=== PATIENT | male | born 1965 | race Caucasian/White ===

== ENCOUNTER 2023-06-15 06:23 | Day surgery (SDC) | payer OTHER ==
[2023-06-14 15:49] LABS: Absolute Lymphocytes (CBC) 2.2 K/uL (0.7-4.9); Hematocrit 43.2 % (39.6-49.0); Lymphocytes % 22.5 % (15.3-44.8); MCV 84.7 fL (80-100); MPV 6.9 fL (7.6-11.3); Platelets 281 thou/uL (152-406)
[2023-06-14 16:04] LABS: Potassium 3.8 mEq/L (3.5-5.1)
--- NOTE | 2023-06-14 16:32 | RAD REPORT ---
EXAM DESCRIPTION: Vale Mcpherson (2 Views)06/14/2023 3:50 pm CLINICAL HISTORY: Cough COMPARISON: 2012 FINDINGS: The lungs appear clear of acute infiltrate. The heart is normal size IMPRESSION: No acute abnormalities displayed
[2023-06-15] MEDS ORDERED: propofoL 200 MG/20 ML VIAL IV ONE (06:42)
[2023-06-15] MEDS ORDERED: MIDAZOLAM HCL 2 MG/2 ML INJ ONE (06:42)
[2023-06-15] MEDS ORDERED: LIDOCAINE 2% MPF 5 ML VIAL ONE (06:42)
[2023-06-15] MEDS ORDERED: CEFOXITIN SODIUM 1 GM/VIAL ONE (06:46)
[2023-06-15] MEDS ORDERED: Ringers Lactate 1,000 ML IV ONE (06:47)
[2023-06-15] MEDS ORDERED: BUPIVACAINE 0.5% PF 10 ML VIAL ONE (07:20)
[2023-06-15] MEDS ORDERED: ONDANSETRON 4 MG/2 ML VIAL ONE (07:57)
[2023-06-15] MEDS ORDERED: KETOROLAC 30 MG/ML INJ ONE (07:57)
[2023-06-15] MEDS ORDERED: KETAMINE HCL IN 0.9 % NACL 50 MG/5 ML SYRINGE IV ONE (07:57)
[2023-06-15] MEDS ORDERED: dexAMETHasone 10 MG/ML VIAL ONE (07:57)
[2023-06-15] MEDS ORDERED: HYDROCODONE/APAP 7.5/325 MG TAB PO PRN (08:46)
--- NOTE | 2023-06-15 08:50 | P.OP ---
Date of Service: 06/15/23 Preop diagnosis: Thrombosed hemorrhoid Postop diagnosis: Same, thrombosed hemorrhoid x 2 Procedure performed: EUA, rigid proctoscopy, hemorrhoidectomy x 2 Surgeon: Santiago Figueroa MD Trackwalker: None Estimated blood loss: Minimal Specimen: Right lateral thrombosed hemorrhoid, left lateral thrombosed hemorrhoid Findings: As above Anesthesia: General Complications: None Drains: None Fluids and blood products: Nonapplicable Disposition: Recovery room Operative note: Patient brought to the OR and placed in supine position. Ge neral anesthesia begun. Patient placed in lithotomy position. Patient prepped and draped in usual sterile fashion. Exam under anesthesia revealed a large thrombosed hemorrhoid on the right side and a small thrombosed hemorrhoid on the left side. Proctoscopy confirmed those findings and no other evidence of disease was identified. Harmonic scalpel used to excise both hemorrhoids. Both hemorrhoids labeled and sent to pathology. Cautery used to control minimal oozing. Marcaine 0.5% infiltrated locally for postop pain control. Rectal pack consisting of Gelfoam Surgicel and Vaseline gauze placed in the anal canal. Sterile dressing applied and patient awakened. Patient taken to recovery room in good general condition. CC: Dr. Solano's office
[2023-06-15 09:24] VITALS: BP 129/84; TEMP 98
[2023-06-15 09:25] VITALS: O2SAT 100
--- NOTE | 2023-06-15 13:23 | EKG ---
Test Date: 2023-06-14 Test Time: 16:33:06 Compressor Station Chief Engineer: GRACIE MEASUREMENT RESULTS: Intervals: Rate: 58 [place]: 132 QRSD: 102 QT: 408 QTc: 400 [place]: P: 67 [place]: 132 QRS: 88 T: 42 INTERPRETIVE STATEMENTS: Sinus bradycardia Otherwise normal ECG Compared to ECG 08/01/2011 13:37:09 Sinus rhythm no longer present T-wave abnormality no longer present Electronically Signed On 06-15-23 13:21:43 FAMILY MEDICINE RESIDENT by Joseph Aranda
[2023-06-15] MEDS ORDERED: FENTANYL CITR 100 MCG/2 ML ONE (13:49)
== END 2023-06-15 10:00 | disposition home or self-care (01) ==
LOC: OR 06:23
PROVIDERS: ATTEND Surgery
PROC: 06BY0ZC Excision of Hemorrhoidal Plexus, Open Approach (ICD-10-PCS; 2023-06-15)
PROC: 0DJD8ZZ Inspection of Lower Intestinal Tract, Via Natural or Artificial Opening Endoscopic (ICD-10-PCS; principal; 2023-06-15 07:30)
DX: K64.5 Perianal venous thrombosis (principal); K21.9 Gastro-esophageal reflux disease without esophagitis; E78.00 Pure hypercholesterolemia, unspecified
CPT/HCPCS: 45300; 93005; 85025; 80048; 36415; 88304; 71046; 46320; J2704; J2001; J2250; J3010; J1100; J0694; J2405; J7120

== ENCOUNTER 2024-08-02 17:27 | Emergency (ER) | payer OTHER ==
--- NOTE | 2024-08-02 18:14 | RAD REPORT ---
EXAMINATION: XR LEFT ANKLE CLINICAL INDICATION: Male, 58 years old. L ankle inj TECHNIQUE: 3 view radiograph of the left ankle were obtained. COMPARISON: No prior exam. FINDINGS: Moderate lateral soft tissue swelling. Bony fragmentation of the distal fibula likely fract ure. This could be acute on a chronic fracture.Small calcaneal spur. No dislocation seen.
--- NOTE | 2024-08-02 19:37 | EDPHYS ---
Physician Documentation [facility] Name: Tanja Edwards Age: 58 yrs Sex: Male : 1965 Arrival Date: 08/02/2024 Time: 17:27 Bed 12 Private MD: ED Physician Bita Elizalde HPI: 08/02 19:35 This 58 yrs old Male presents to ER via Wheelchair with complaints of Left, Ankle kb Injury. 19:35 Patient is a 58-year-old male who presents for left ankle pain after twisting it on kb uneven concrete this afternoon. Reports he is twisted his ankles in the past but is never gotten this swollen before. Reports difficulty walking on ankle.. Historical: - Allergies: 19:54 No Known Allergies; cp4 - Immunization history:: Adult Immunizations up to date. - Infectious Disease History:: Denies. - Social history:: Smoking status: Patient denies any tobacco usage or history of. ROS: 17:59 Constitutional: As per HPI kb Exam: 17:59 Constitutional: This is a well developed, well nourished patient who is awake, alert, kb and in no acute distress. Head/Face: Normocephalic, atraumatic. ENT: Moist Mucous membranes Cardiovascular: Regular rate Respiratory: Respirations even and unlabored. No increased work of breathing. Talking in full sentences Skin: Warm, dry with normal turgor. Normal color. Neuro: Awake and alert, GCS 15, oriented to person, place, time, and situation. 17:59 Musculoskeletal/extremity: Extremities: grossly normal except: noted in the left lateral ankle: pain, swelling, tenderness, ROM: limited active range of motion due to pain, Circulation is intact in all extremities. Sensation intact. Weight bearing: can bear weight with assistance only, Vital Signs: 17:58 BP 113 / 79; Pulse 85; Resp 16; Temp 98.1; Pulse Ox 98% on R/A; iw 20:02 BP 113 / 79; Pulse 85; Resp 18; Temp 97; Pulse Ox 98% ; Pain 5/10; cp4 20:02 Pain Scale: Adult cp4 MDM: 17:35 Medical Screening Exam initiated kb 19:35 Differential diagnosis: Fracture, sprain. Data reviewed: vital signs, nurses notes. kb Historians other than the Patient: Spouse/Significant Other: Spouse. Counseling: I had a detailed discussion with the patient and/or guardian regarding the historical points, exam findings, and any diagnostic results supporting the discharge/admit diagnosis, radiology results, the need for outpatient follow up, a orthopedic surgeon, to return to the emergency department if symptoms worsen or persist or if there are any questions or concerns that arise at home. 19:36 Independent interpretation of the following test(s) in the Emergency Department X-Ray: kb My interpretation is Possible fracture to distal end of fibula. Patient denies a known fracture in the past. Will splint and have patient follow-up with orthopedics. 08/02 17:32 Order name: Ankle Left 3 View XRAY; Complete Time: 18:18 ec2 08/02 17:59 Order name: Ankle Left 3 View XRAY kb 08/02 18:49 Order name: Short Leg Splint; Complete Time: 19:42 kb 08/02 18:49 Order name: Crutches; Complete Time: 19:42 kb Administered Medications: No medications were administered Disposition Summary: 08/02/24 19:37 Discharge Ordered Condition: Stable kb Diagnosis - Distal Fibula Fracture kb Followup: kb - With: Private Physician - When: 2 - 3 days - Reason: Recheck today's complaints, Continuance of care, Re-evaluation by your physician Followup: kb - With: Emergency Department - When: As needed - Reason: Worsening of condition Discharge Instructions: - Discharge Summary Sheet kb - Nondisplaced Fibular Ankle Fracture Treated With Immobilization kb Forms: - Medication Reconciliation Form kb - Antibiotic Education kb - Prescription Opioid Use kb - Patient Portal Instructions kb - Leadership Thank You Letter kb Prescriptions: - Ibuprofen 800 mg Oral Tablet - take 1 tablet ORAL route every 8 hours As needed take with food; 30 tablet; kb Refills: 0, Product Selection Permitted Signatures: Dispatcher [employer] EDVivien Sainz FNP-C FNP-Iliana Kwok cp4 Corrections: (The following items were deleted from the chart) 17:33 17:33 Ankle Left 3 View+RAD.RAD.BRZ ordered. EDMS EDMS
--- NOTE | 2024-08-02 19:37 | ER ---
Nurse's Notes [facility] Name: Tanja Edwards Age: 58 yrs Sex: Male : 1965 Arrival Date: 08/02/2024 Time: 17:27 Bed 12 Private MD: Diagnosis: Distal Fibula Fracture Presentation: 08/02 17:58 Chief complaint: Patient states: tripped over some uneven concrete , injured left iw ankle. Coronavirus screen: At this time, the client does not indicate any symptoms associated with coronavirus-19. Ebola Screen: No symptoms or risks identified at this time. Initial Sepsis Screen: Does the patient meet any 2 criteria? No. Patient's initial sepsis screen is negative. Does the patient have a suspected source of infection? No. Patient's initial sepsis screen is negative. Risk Assessment: Do you want to hurt yourself or someone else? Patient reports no desire to harm self or others. Onset of symptoms was August 02, 2024. 17:58 Method Of Arrival: Wheelchair iw 17:58 Acuity: LOTUS 4 iw Triage Assessment: 19:54 General: Appears in no apparent distress. uncomfortable, Behavior is calm, cooperative, cp4 appropriate for age. Pain: Complains of pain in left leg and left lateral ankle. EENT: No signs and/or symptoms were reported regarding the EENT system. Neuro: Level of Consciousness is awake, alert, obeys commands, Oriented to person, place, time, situation, Cardiovascular: Patient's skin is warm and dry. Respiratory: Airway is patent Respiratory effort is even, unlabored. Historical: - Allergies: 19:54 No Known Allergies; cp4 - Immunization history:: Adult Immunizations up to date. - Infectious Disease History:: Denies. - Social history:: Smoking status: Patient denies any tobacco usage or history of. Screenin:03 [facility] ED Fall Risk Assessment (Adult) History of falling in the last 3 months, cp4 including since admission Yes- single mechanical fall (1 pt) Confusion or Disorientation No (0 pts) Intoxicated or Sedated No (0 pts) Impaired Gait No (0 pts) Mobility Assist Device Used No (0 pt) Altered Elimination No (0 pt) Score/Fall Risk Level 0 - 2 = Low Risk Oriented to surroundings, Maintained a safe environment, Assessed \T\ reinforced patient's understanding of fall precautions, Hourly rounding (assess needs \T\ fall precautionary measures) done. Abuse screen: Denies threats or abuse. Denies injuries from another. Nutritional screening: No deficits noted. Tuberculosis screening: No symptoms or risk factors identified. Assessment: 20:03 Reassessment: No changes from previously documented assessment. Musculoskeletal: cp4 Reports pain in left leg and left lateral ankle. Vital Signs: 17:58 BP 113 / 79; Pulse 85; Resp 16; Temp 98.1; Pulse Ox 98% on R/A; iw 20:02 BP 113 / 79; Pulse 85; Resp 18; Temp 97; Pulse Ox 98% ; Pain 5/10; cp4 20:02 Pain Scale: Adult cp4 ED Course: 17:29 Patient arrived in ED. mr 17:35 Vivien Harding FNP-C [facility] kb 17:35 Bita Elizalde MD is Attending Physician. kb 17:58 Triage completed. iw 18:07 Ankle Left 3 View XRAY In Process Unspecified. EDMS 19:42 Iliana Arnett is Primary Nurse. cp4 19:54 Arm band placed on right wrist. Patient placed in waiting room. cp4 20:03 Bed in low position. Call light in reach. Side rails up X 1. Provided Education on: cp4 ankle fracture.. 20:03 No provider procedures requiring assistance completed. Patient did not have IV access cp4 during this emergency room visit. Administered Medications: No medications were administered Medication: 20:03 VIS not applicable for this client. cp4 Outcome: 19:37 Discharge ordered by MD. kb 20:03 Discharged to home ambulatory, with crutches, cp4 20:03 Condition: stable 20:03 Discharge instructions given to 20:03 Discharge instructions given to patient, family, Instructed on discharge instructions, follow up and referral plans. medication usage, Demonstrated understanding of instructions, follow-up care, medications, Prescriptions given X 1, 20:09 Patient left the ED. cp4 Signatures: Dispatcher [employer] EDMS Vivien Harding FNP-C FNP-Soraida Salter, Reg Reg Lisandra Solis, RN RN Iliana Anderson cp4
[2024-08-02 20:29] VITALS: BP 113/79; O2SAT 98
[2024-08-02 20:31] VITALS: TEMP 97
== END 2024-08-02 20:09 | disposition home or self-care (01) ==
LOC: ER 17:27
PROC: 2W3MX1Z Immobilization of Left Lower Extremity using Splint (ICD-10-PCS; principal; 2024-08-02)
DX: S82.832A Other fracture of upper and lower end of left fibula, initial encounter for closed fracture (principal)
CPT/HCPCS: 99283